=== PATIENT | male | born 1970 | race Caucasian/White ===

== ENCOUNTER 2017-03-26 04:01 | Emergency (ER) | payer SELFPAY ==
[2017-03-26] MEDS ORDERED: Insulin Regular 300 UNITS/3 ML VIAL ONE (04:39)
[2017-03-26 05:05] LABS: #Basophils 0.1 thou/uL (0.0-0.2); #Eosinphils 0.1 thou/uL (0.0-0.7); #Lymphocytes 1.7 thou/uL (1.20-3.40); #Monocytes 0.6 thou/uL (0.11-0.59); #Neutrophils 3.6 thou/uL (1.40-6.50); %Basophils 1.3 % (0.0-1.0); %Eosinophils 2.3 % (0.0-10.0); %Lymphocytes 28.1 % (21.0-51.0); %Monocytes 9.7 % (0.0-10.0); %Neutrophils 58.6 % (42.0-75.0); Hemoglobin 14.9 g/dL (14.0-18.0); Mean Corpuscular HGB CONC 36.1 g/dL (32.0-36.0); Mean Corpuscular Hemoglobin 32.9 pg (27.0-31.0); Mean Corpuscular Volume 91.1 fl (80.0-94.0); Mean Platelet Volume 8.2 fL (7.4-10.4); Platelet Count 210 thou/uL (130-400); RBC Distribution Width 12.3 % (11.5-14.5); Red Blood Cell (RBC) Count 4.52 mill/uL (4.70-6.10); White Blood Cell (WBC) Count 6.1 thou/uL (4.8-10.8)
[2017-03-26 05:08] LABS: ALT (SGPT) 64 U/L (8-55); AST (SGOT) 25 U/L (5-34); Albumin 3.8 g/dL (3.5-5.0); Alkaline Phosphatase 123 U/L (40-150); Anion Gap 23 mmol/L (10-20); BUN (Urea Nitrogen) 20 mg/dL (8.9-20.6); Bilirubin, Total 0.5 mg/dL (0.2-1.2); CK (CPK) 44 U/L (30-200); Calc. Creatinine Clearance 0 mL/min (70-130); Calcium 9.1 mg/dL (7.8-10.44); Carbon Dioxide 15 mmol/L (22-29); Chloride 96 mmol/L (98-107); Estimated GFR-MDRD 79; Globulin 3.7 g/dL (2.4-3.5); Lipase 50 U/L (8-78); Potassium 4.4 mmol/L (3.5-5.1); Protein, Total 7.5 g/dL (6.0-8.3); Sodium 130 mmol/L (136-145)
[2017-03-26 05:15] LABS: CKMB 0.9 ng/mL (0-6.6); Troponin I 0.019 ng/mL (< 0.028)
[2017-03-26 05:24] LABS: Bacteria/HPF None Seen HPF (None Seen); Bilirubin Negative (Negative); Blood, Urine Trace (Negative); Clarity Clear (Clear); Glucose, Urine (Dipstick) 500 mg/dL (Negative); Leukocyte Negative (Negative); Nitrite Negative (Negative); Protein, Urine (Dipstick) Negative (Neg-Trace); Urobilinogen 0.2 mg/dL (0.2-1.0); WBC/HPF 0-3 HPF (0-3)
[2017-03-26 05:28] LABS: Glucose 634 mg/dL (70-105)
[2017-03-26] MEDS ORDERED: Sodium Chloride 0.9% 1,000 ML BAG ONE (07:47)
[2017-03-26] MEDS ORDERED: Sodium Chloride 0.9% 100 ML BAG ONE (07:47)
--- NOTE | 2017-03-26 08:31 | RAD ---
PORTABLE CHEST HISTORY: Hyperglycemia. FINDINGS: The lungs show no evidence of infiltrate. The heart is mildly prominent. Vascular markings are upp er normal. No effusion. IMPRESSION: 1. Borderline cardiomegaly, although the heart is accentuated by this projection. 2. Mildly prominent vascular markings. POS: [id number]
== END 2017-03-26 09:25 | disposition home or self-care (01) ==
LOC: MADERS 04:01
DX: E11.65 Type 2 diabetes mellitus with hyperglycemia (principal); I10 Essential (primary) hypertension; E78.5 Hyperlipidemia, unspecified; F17.210 Nicotine dependence, cigarettes, uncomplicated; Z79.4 Long term (current) use of insulin
CPT/HCPCS: 36415; 36416; 71010; 80053; 81001; 82150; 82553; 83690; 84484; 85025; 86140; 87086; 93005; 94760; 96365; 96366; 96376; J1815; J7050